=== PATIENT | male | born 1960 | race Caucasian/White ===

== ENCOUNTER 2017-05-17 02:55 | Inpatient (IN) | payer BC ==
[~2017-05-17] VITALS: Ht 180.3 cm; Wt 84.5 kg
--- NOTE | 2017-05-17 05:50 | ED NURSING NOTES ---
Clinical Report - Nurses [facility] [address] [place] [address] 05/17/2017 2:55 Patient: CYN PARSONS TRIAGE Triage time 02:59. Acuity: LEVEL 3. Chief Complaint: CHEST PAIN and SHORTNESS OF BREATH (right chest pain under arm pit and right nipple). --03:04 Kamilla Borden R.N. 02:59 05/17/17. BP: 153/89 taken on the left arm, while lying. HR: 82 (regular and normal rate). RR: 18 (regular and unlabored). O2 saturation: 97% on room air. Temp: 98 F. Pain level now: 06/18. --03:04 Kamilla Borden R.N. Weight: 90.7 kg stated. Height/Length: 71 inches Per Patient. BMI: 27.9. --03:00 Kamilla Borden R.N. Medications None. --03:02 Kamilla Borden R.N. Allergies Neosporin. --03:02 Kamilla Borden R.N. Shellfish-derived Products. Definite Severe(vomiting) --04:24 Kamilla Borden R.N. History Arrived by private vehicle. Historian: patient. Accompanied by family. Primary physician (none). Onset. (since Thursday). ( pt c/o pain to right chest under right nipple and right arm pit worse with breathing and coughing). ( swelling to right leg x 6 months). PAST MEDICAL HX: Immunizations: up-to-date. SOCIAL HX: Heavy tobacco smoker (cigarette)- 1 pack per day. Occasional alcohol use; consumes beer occasionally. No drug use. No infectious disease exposure. ABUSE ASSESSMENT: No report of abuse. SELF HARM ASSESSMENT: A self harm assessment was performed. The patient answered "no" to the question "Have you recently felt down, depressed, or hopeless?", "Have you noticed less interest or pleasure in doing things?", "Do you have thoughts of harming or killing yourself?", "Are you here because you tried to hurt yourself?", "Have you ever tried to hurt yourself before today?", "Have you recently had thoughts about harming or killing others?" and "Do you have any dangerous items in your possession?". FALL RISK ASSESSMENT: Fall risk assessment completed. No fall risk identified. NUTRITIONAL RISK ASSESSMENT: The nutritional risk assessment revealed no deficiencies. FUNCTIONAL ASSESSMENT: Functional assessment: no impairments noted. LEARNING NEEDS ASSESSMENT: The learning needs assessment revealed no barriers. SKIN INTEGRITY ASSESSMENT: Skin integrity risk assessment completed. No skin integrity risk identified. --03:04 Kamilla Borden R.N. PROBLEMS: Cellulitis. --03:04 Kamilla Borden R.N. ADDITIONAL SURGERIES: no known surgeries. Interventions ID band on patient. To treatment room. --03:04 Kamilla Borden R.N. PHYSICAL ASSESSMENT Ambulatory to room. GENERAL / NEURO / PSYCH: Alert. Oriented X 4. Appears in pain. HEENT: Mucous membranes are pink. RESPIRATORY: Respirations not labored. Expiratory wheezes in the right mid-lung anteriorly and posteriorly. CVS: Cardiac rhythm: normal sinus rhythm; (82). Heart sounds within normal limits. Pulses within normal limits. Capillary refill less than 2 seconds. GI / : Abdomen soft and nontender. EXTREMITIES: Edema of the right lower extremity involving the foot and ankle. SKIN: Skin is warm and dry. Normal skin turgor. Skin is non-tender. --03:06 Kamilla Borden R.N. NURSING PROGRESS NOTES Patient gowned. Call light placed in reach. Side rails up x 1. Patient ready for evaluation- chart flagged. --03:06 Kamilla Borden R.N. EKG time: (0302 AM). EKG was ordered, performed by a tech and shown to the ED physician. --03:09 Cami Lagos 03:10 05/17/2017 Site #1 started via IV in the right antecubital space with an 18g angiocath, with aseptic technique and good blood return; one attempt. Blood drawn: rainbow set. Labeled in the presence of the patient and sent to the lab. Saline lock flushed with 10 mL saline. --03:17 Kamilla Borden R.N. 04:31 05/17/2017 Benadryl (DiphenhydrAMINE HCl) IVP 25 mg given over 2 minute(s) via site #1. Allergies verified, confirmed 5 rights and sedative warning given to the patient. IV patency established. IV site checked: no pain, redness, or swelling. IV flushed thoroughly pre- and post-medication administration. IVP given by RN. --04:39 Kamilla Borden R.N. 04:33 05/17/2017 Zofran (Ondansetron HCl) IVP 4 mg given over 2 minute(s) via site #1. Allergies verified and confirmed 5 rights. IV patency established. IV site checked: no pain, redness, or swelling. IV flushed thoroughly pre- and post-medication administration. IVP given by RN. --04:39 Kamilla Borden R.N. 04:34 05/17/2017 Morphine IVP 4 mg given over 2 minute(s) via site #1. Allergies verified, confirmed 5 rights and sedative warning given to the patient. IV patency established. IV site checked: no pain, redness, or swelling. IV flushed thoroughly pre- and post-medication administration. IVP given by RN. --04:38 Kamilla Borden R.N. Patient transported to [place] by stretcher with tech. (04:39). --04:39 Kamilla Borden R.N. Two patient identifiers checked. Call light placed in reach. Side rails up x 2. Bed placed in lowest position. Brakes of bed on. --04:44 Kamilla Borden R.N. 04:11 05/17/17. BP: 140/83. HR: 86 (regular and normal rate). RR: 18 (regular and unlabored). O2 saturation: 94% on room air. Temp: deferred. Pain level now: 04/18. --04:44 Kamilla Borden R.N. Patient returned from [place] by stretcher with tech. (04:52). --04:52 Kamilla Borden R.N. 05:50 05/17/2017 Lovenox (Enoxaparin Sodium) Subcutaneous 90 mg given. Given in the right abdomen. Allergies verified and confirmed 5 rights. --05:50 Kamilla Borden R.N. 05:50 05/17/2017 IV Saline Lock Drip IV Continued: upon admission at the rate of 0 mL/hr. 0 mL remaining. IV patency established. IV site checked: no pain, redness, or swelling. IV flushed thoroughly. --05:50 Kamilla Borden R.N. 05:51 05/17/2017 Site #[address] upon admission; patent, no pain and no signs of infection or infiltration. Good blood return present. Flushed with 10 mL saline; flushes easily. --05:51 Kamilla Borden R.N. DISPOSITION / DISCHARGE Departure time: 05:54. Transported via stretcher by [employer] with IV. Report was given to a nurse via a phone call. Report included patient's care, treatment, medications, reviewed medication reconcilliation, and condition (including any recent changes or anticipated changes). All questions were answered. Report was acknowledged and care was transferred. ([id number] Nasreen MAO). --05:55 Kamilla Borden R.N. 05:53 05/17/17. BP: 137/84 taken on the left arm, while lying. HR: 80 (regular and normal rate). RR: 18 (regular and unlabored). O2 saturation: 95% on room air. Temp: deferred. Pain level now: 0/10. --05:55 Kamilla Borden R.N. Locked/Released at 05/17/2017 5:55 by Kamilla Borden R.N.
--- NOTE | 2017-05-17 05:50 | ED ORDER SUMMARY ---
..... Patient: CYN PARSONS OrderSheet [facility] VisitID: [id number] [place] [address] 56y, M Registration Date/Time: 05/17/2017 ORDER SHEET Weight: 90.7 kg (stated) Allergies: Neosporin, Shellfish-derived Products GENERAL ORDERS: Chest 2V Urgent (03:18 05/17/2017 Kait Bateman) (Ack 3:31 Zack ER Cone Worker) (4:27 CBradburn R.N.) Preventive Maintenance Engineer (Continuous) (03:19 05/17/2017 Kait Bateman) (3:20 Carson R.N.) CBC w Diff Urgent (03:05/17/2017 Kait Bateman) (3:20 Carson R.N.) CMP Urgent (03:19 05/17/2017 Kait Bateman) (3:20 Carson R.N.) Troponin-I Urgent (03:19 05/17/2017 Kait Bateman) (3:20 Carson R.N.) D-Dimer Urgent (03:19 05/17/2017 Kait Bateman) (3:20 Carson R.N.) Pulse oximeter (03:05/17/2017 Kiat Bateman) (3:20 GINGERradrobin R.N.) EKG - ER Stat (03:19 05/17/2017 Kait Bateman) (3:20 Carson R.N.) CTA Thorax w Cont (No) (N/A) Urgent (04:00 05/17/2017 Kait Bateman) (Ack 4:05 Zack ER Cone Worker) (4:39 Carson R.N.) MEDICATION ORDERS: Lovenox Subcut 1 mg/kg (HIGH ALERT MEDICATION, NOW) (05:24 05/17/2017 Kait Bateman) (Ack 5:28 CBradrobin R.N.) (5:50 Carson R.N.) IV FLUIDS: IV Saline Lock (03:19 05/17/2017 Kait Bateman) (3:20 Carson R.N.) Morphine IV 4 mg (HIGH ALERT MEDICATION, NOW) (04:17 05/17/2017 Kait Bateman) (Ack 4:29 CBradburn R.N.) (4:38 CBradburn R.N.) Benadryl IV 25 mg (NOW) (04:28 05/17/2017 Kait Bateman) (Ack 4:29 CBradburn R.N.) (4:39 CBradburn R.N.) Zofran IV 4 mg (NOW) (04:28 05/17/2017 Kait Bateman) (Ack 4:29 CBradburn R.N.) (4:39 CBradburn R.N.) ORDER SHEET NOTES: [Electronically signed by Kamilla Borden R.N. (05:55 05/17/2017)] [Electronically signed by Nav Shelley Dr. (06:38 05/19/2017)] [Electronically locked/signed by Kamilla Borden R.N. (05:55 05/17/2017)]
--- NOTE | 2017-05-17 05:50 | ED NURSING NOTES ---
Clinical Report - Nurses [facility] [address] [place] [address] 05/17/2017 2:55 Patient: CYN PARSONS TRIAGE Triage time 02:59. Acuity: LEVEL 3. Chief Complaint: CHEST PAIN and SHORTNESS OF BREATH (right chest pain under arm pit and right nipple). --03:04 Kamilla Borden R.N. 02:59 05/17/17. BP: 153/89 taken on the left arm, while lying. HR: 82 (regular and normal rate). RR: 18 (regular and unlabored). O2 saturation: 97% on room air. Temp: 98 F. Pain level now: 06/18. --03:04 Kamilla Borden R.N. Weight: 90.7 kg stated. Height/Length: 71 inches Per Patient. BMI: 27.9. --03:00 Kamilla Borden R.N. Medications None. --03:02 Kamilla Borden R.N. Allergies Neosporin. --03:02 Kamilla Borden R.N. Shellfish-derived Products. Definite Severe(vomiting) --04:24 Kamilla Borden R.N. History Arrived by private vehicle. Historian: patient. Accompanied by family. Primary physician (none). Onset. (since Thursday). ( pt c/o pain to right chest under right nipple and right arm pit worse with breathing and coughing). ( swelling to right leg x 6 months). PAST MEDICAL HX: Immunizations: up-to-date. SOCIAL HX: Heavy tobacco smoker (cigarette)- 1 pack per day. Occasional alcohol use; consumes beer occasionally. No drug use. No infectious disease exposure. ABUSE ASSESSMENT: No report of abuse. SELF HARM ASSESSMENT: A self harm assessment was performed. The patient answered "no" to the question "Have you recently felt down, depressed, or hopeless?", "Have you noticed less interest or pleasure in doing things?", "Do you have thoughts of harming or killing yourself?", "Are you here because you tried to hurt yourself?", "Have you ever tried to hurt yourself before today?", "Have you recently had thoughts about harming or killing others?" and "Do you have any dangerous items in your possession?". FALL RISK ASSESSMENT: Fall risk assessment completed. No fall risk identified. NUTRITIONAL RISK ASSESSMENT: The nutritional risk assessment revealed no deficiencies. FUNCTIONAL ASSESSMENT: Functional assessment: no impairments noted. LEARNING NEEDS ASSESSMENT: The learning needs assessment revealed no barriers. SKIN INTEGRITY ASSESSMENT: Skin integrity risk assessment completed. No skin integrity risk identified. --03:04 Kamilla Borden R.N. PROBLEMS: Cellulitis. --03:04 Kamilla Borden R.N. ADDITIONAL SURGERIES: no known surgeries. Interventions ID band on patient. To treatment room. --03:04 Kamilla Borden R.N. PHYSICAL ASSESSMENT Ambulatory to room. GENERAL / NEURO / PSYCH: Alert. Oriented X 4. Appears in pain. HEENT: Mucous membranes are pink. RESPIRATORY: Respirations not labored. Expiratory wheezes in the right mid-lung anteriorly and posteriorly. CVS: Cardiac rhythm: normal sinus rhythm; (82). Heart sounds within normal limits. Pulses within normal limits. Capillary refill less than 2 seconds. GI / : Abdomen soft and nontender. EXTREMITIES: Edema of the right lower extremity involving the foot and ankle. SKIN: Skin is warm and dry. Normal skin turgor. Skin is non-tender. --03:06 Kamilla Borden R.N. NURSING PROGRESS NOTES Patient gowned. Call light placed in reach. Side rails up x 1. Patient ready for evaluation- chart flagged. --03:06 Kamilla Borden R.N. EKG time: (0302 AM). EKG was ordered, performed by a tech and shown to the ED physician. --03:09 Cami Lagos 03:10 05/17/2017 Site #1 started via IV in the right antecubital space with an 18g angiocath, with aseptic technique and good blood return; one attempt. Blood drawn: rainbow set. Labeled in the presence of the patient and sent to the lab. Saline lock flushed with 10 mL saline. --03:17 Kamilla Borden R.N. 04:31 05/17/2017 Benadryl (DiphenhydrAMINE HCl) IVP 25 mg given over 2 minute(s) via site #1. Allergies verified, confirmed 5 rights and sedative warning given to the patient. IV patency established. IV site checked: no pain, redness, or swelling. IV flushed thoroughly pre- and post-medication administration. IVP given by RN. --04:39 Kamilla Borden R.N. 04:33 05/17/2017 Zofran (Ondansetron HCl) IVP 4 mg given over 2 minute(s) via site #1. Allergies verified and confirmed 5 rights. IV patency established. IV site checked: no pain, redness, or swelling. IV flushed thoroughly pre- and post-medication administration. IVP given by RN. --04:39 Kamilla Borden R.N. 04:34 05/17/2017 Morphine IVP 4 mg given over 2 minute(s) via site #1. Allergies verified, confirmed 5 rights and sedative warning given to the patient. IV patency established. IV site checked: no pain, redness, or swelling. IV flushed thoroughly pre- and post-medication administration. IVP given by RN. --04:38 Kamilla Borden R.N. Patient transported to [place] by stretcher with tech. (04:39). --04:39 Kamilla Borden R.N. Two patient identifiers checked. Call light placed in reach. Side rails up x 2. Bed placed in lowest position. Brakes of bed on. --04:44 Kamilla Borden R.N. 04:11 05/17/17. BP: 140/83. HR: 86 (regular and normal rate). RR: 18 (regular and unlabored). O2 saturation: 94% on room air. Temp: deferred. Pain level now: 04/18. --04:44 Kamilla Borden R.N. Patient returned from [place] by stretcher with tech. (04:52). --04:52 Kamilla Borden R.N. 05:50 05/17/2017 Lovenox (Enoxaparin Sodium) Subcutaneous 90 mg given. Given in the right abdomen. Allergies verified and confirmed 5 rights. --05:50 Kamilla Borden R.N. 05:50 05/17/2017 IV Saline Lock Drip IV Continued: upon admission at the rate of 0 mL/hr. 0 mL remaining. IV patency established. IV site checked: no pain, redness, or swelling. IV flushed thoroughly. --05:50 Kamilla Borden R.N. 05:51 05/17/2017 Site #[address] upon admission; patent, no pain and no signs of infection or infiltration. Good blood return present. Flushed with 10 mL saline; flushes easily. --05:51 Kamilla Borden R.N. DISPOSITION / DISCHARGE Departure time: 05:54. Transported via stretcher by [employer] with IV. Report was given to a nurse via a phone call. Report included patient's care, treatment, medications, reviewed medication reconcilliation, and condition (including any recent changes or anticipated changes). All questions were answered. Report was acknowledged and care was transferred. (0538 Nasreen MAO). --05:55 Kamilla Borden R.N. 05:53 05/17/17. BP: 137/84 taken on the left arm, while lying. HR: 80 (regular and normal rate). RR: 18 (regular and unlabored). O2 saturation: 95% on room air. Temp: deferred. Pain level now: 0/10. --05:55 Kamilla Borden R.N. Locked/Released at 05/17/2017 5:55 by Kamilla Borden R.N.
--- NOTE | 2017-05-17 05:50 | ED ORDER SUMMARY ---
..... Patient: CYN PARSONS OrderSheet [facility] VisitID: [id number] [place] [address] 56y, M Registration Date/Time: 05/17/2017 ORDER SHEET Weight: 90.7 kg (stated) Allergies: Neosporin, Shellfish-derived Products GENERAL ORDERS: Chest 2V Urgent (03:18 05/17/2017 Kait Bateman) (Ack 3:31 Zack ER Supervisor Printing Shop) (4:27 CBradburn R.N.) Car Hop (Continuous) (03:19 05/17/2017 Kait Bateman) (3:20 Carson R.N.) CBC w Diff Urgent (03:05/17/2017 Kait Bateman) (3:20 Carson R.N.) CMP Urgent (03:19 05/17/2017 Kait Bateman) (3:20 Carson R.N.) Troponin-I Urgent (03:19 05/17/2017 Kait Bateman) (3:20 Carson R.N.) D-Dimer Urgent (03:19 05/17/2017 Kait Bateman) (3:20 Carson R.N.) Pulse oximeter (03:05/17/2017 Kait Bateman) (3:20 GINGERradrobin R.N.) EKG - ER Stat (03:19 05/17/2017 Kait Bateman) (3:20 Carson R.N.) CTA Thorax w Cont (No) (N/A) Urgent (04:00 05/17/2017 Kait Bateman) (Ack 4:05 Zack ER Supervisor Printing Shop) (4:39 Carson R.N.) MEDICATION ORDERS: Lovenox Subcut 1 mg/kg (HIGH ALERT MEDICATION, NOW) (05:24 05/17/2017 Kait Bateman) (Ack 5:28 CBradrobin R.N.) (5:50 Carson R.N.) IV FLUIDS: IV Saline Lock (03:19 05/17/2017 Kait Bateman) (3:20 Carson R.N.) Morphine IV 4 mg (HIGH ALERT MEDICATION, NOW) (04:17 05/17/2017 Kait Bateman) (Ack 4:29 CBradburn R.N.) (4:38 CBradburn R.N.) Benadryl IV 25 mg (NOW) (04:28 05/17/2017 Kait Bateman) (Ack 4:29 CBradburn R.N.) (4:39 CBradburn R.N.) Zofran IV 4 mg (NOW) (04:28 05/17/2017 Kait Bateman) (Ack 4:29 CBradburn R.N.) (4:39 CBradburn R.N.) ORDER SHEET NOTES: [Electronically signed by Kamilla Borden R.N. (05:55 05/17/2017)] [Electronically signed by Nav Shelley Dr. (06:38 05/19/2017)] [Electronically locked/signed by Kamilla Borden R.N. (05:55 05/17/2017)]
--- NOTE | 2017-05-17 05:50 | ED CLINICAL REPORT ---
Clinical Report - Physicians/Mid Levels [facility] [address] [place] [address] 05/17/2017 2:55 Patient: CYN PARSONS Time Seen: 0309; initial patient contact. Arrived- By private vehicle. Historian- patient. HISTORY OF PRESENT ILLNESS Chief Complaint: CHEST PAIN. At its maximum, severity described as moderate. When seen in the E.D., severity described as moderate. Modifying factors- worsened by deep breaths. Relieved by rest. This started past 2 days and is still present. It was abrupt in onset and has been constant but is not gone now. Onset during driving home from work. It is described as sharp and well localized and it is described as located in the right chest area. No radiation. No nausea, vomiting or diaphoresis. (smoker. recent treatment for "skin infection" of the lower leg.). He has had difficulty breathing. No additional chest pain. Similar symptoms previously: None. Recent medical care: Not recently seen/assessed. REVIEW OF SYSTEMS No fever. All systems otherwise negative, except as recorded above. PAST HISTORY See nurses notes. Denies the following risk factors for DVT/PE - history of DVT and pulmonary embolism, recent surgery, recent MN and congestive heart failure. Denies the following risk factors for DVT/PE - cancer, clotting disorder, estrogens, obesity and immobility. Denies the following risk factors for DVT/PE - advanced in age and vena cava filter. SOCIAL HISTORY Smoker- current status unknown. No alcohol use or drug use. No recent travel. Is a local resident. FAMILY HISTORY Factor V Leiden in multiple family members. ADDITIONAL NOTES The nursing notes have been reviewed. PHYSICAL EXAM Vital Signs: 05/17/2017 02:59 BP: 153/89. HR: 82. RR: 18. O2 saturation: 97%. Temp: 98 F. Pain level now: 8/10. Oxygen saturation normal. Appearance: Alert. Oriented X3. No acute distress. Eyes: Pupils equal, round and reactive to light. Eyes normal inspection. ENT: Ears normal. Nose normal. Pharynx normal. Neck: Normal inspection. Neck supple. CVS: Normal heart rate and rhythm. Heart sounds normal. Pulses normal. Respiratory: No respiratory distress. Breath sounds normal. Chest nontender. No rales, rhonchi or wheezes. Abdomen: Soft and nontender. Bowel sounds normal. Skin: Skin warm and dry. Normal skin color. No rash. Normal skin turgor. Extremities: Extremities exhibit normal ROM. No lower extremity edema. Neuro: Oriented X 3. No motor deficit. No sensory deficit. LABS, X-RAYS, AND EKG EKG: No acute ischemia. Normal sinus rhythm. Rate: 80. Normal P waves. Normal HERMILA. Normal QRS complex. Normal axis. Normal ST and T waves, QT and QTc. The study has been interpreted contemporaneously. The study has been independently viewed by me. The EKG appears to be a good tracing. Chest X-ray: Infiltrate in the right upper lobe. Pleural effusion present. Chest CT: Pulmonary embolism involving the right pulmonary artery. (CTA). The study was independently viewed by me and interpreted by the radiologist. The study was discussed with the radiologist (via phone and fax). Laboratory Tests: CBC w Diff: (CHOCO: 05/17/2017 03:10) ( MsgRcvd 05/17/2017 03:25) Final results Test Result Flag Units (Reference) WHITE BLOOD COUNT 9.9 K/uL (4.5-11.5) RED BLOOD COUNT 4.60 M/uL (4.50-5.90) HEMOGLOBIN 14.2 gm/dL (13.5-17.5) HEMATOCRIT 41.9 % (41.0-53.0) MEAN CELL VOLUME 91 fL (80-100) MEAN CORPUSCULAR HGB 31 pg (26-34) MEAN CORPUSCULAR HGB CONC 34 g/dL (31-37) RED CELL DISTRIBUTION WIDTH 13.2 % (11.6-14.8) PLATELET COUNT 260 K/uL (150-400) NEUTROPHIL % 76.6 H % (50-75) LYMPH % 13.5 L % (25-40) MONO % 4.5 % (3-14) EOSINOPHIL % 5.2 H % (0-4) BASOPHIL % 0.2 % (0-2) [id number]: (CHOCO: 05/17/2017 03:10) ( MsgRcvd 05/17/2017 03:30) Final results Test Result Flag Units (Reference) D-DIMER QUANTITATIVE 1.48 H ug/mLFEU (0.27-0.52) The primary value of this quantitative assay relates toits negative predictive value (i.e. exclusion) of pulmonaryembolism/deep vein thrombosis/DIC.Elevated levels of d-dimer may also occur with:, age, cancer, inflammation, liver disease,post-op, infection, hematoma, coronary disease, peripheralarteriopathy, bleeding disorders and thrombolytic treatment.Results should be correlated with other clinical andradiological data.Testing Methodology: Latex Immunoassay CMP: (CHOCO: 05/17/2017 03:10) ( MsgRcvd 05/17/2017 03:38) Final results Test Result Flag Units (Reference) GLUCOSE 135 H mg/dL (70-110) BUN 15 mg/dL (7-18) CREATININE 0.7 mg/dL (0.6-1.3) Estimated GFR >60 mL/min Estimated GFR- >60 mL/min Note: Persistent reduction over 3 months in eGFR<60 mL/min/1.73 m2 defines CKD. Patients with eGFR values>=60 mL/min/1.73 m2 may also have CKD if evidence ofpersistent proteinuria. Additional information may be foundat www.[email or web address].org. SODIUM 140 mmol/L (136-145) POTASSIUM 3.9 mmol/L (3.5-5.1) CHLORIDE 105 mmol/L (98-107) CARBON DIOXIDE 23 mmol/L (21-32) CALCIUM 8.2 L mg/dL (8.5-10.1) TOTAL PROTEIN 6.6 g/dL (6.4-8.2) ALBUMIN 3.1 L g/dL (3.3-5.0) BILIRUBIN, TOTAL 0.3 mg/dL (0.0-1.0) ALKALINE PHOSPHATASE 94 U/L (46-116) AST (SGOT) 16 U/L (15-37) ALT (SGPT) 28 U/L (12-78) TROPONIN I <0.05 ng/mL (0.00-1.5) TROPONIN REFERENCE RANGE:<0.1 NEGATIVE0.1-1.5 INDETERMINANT>1.5 POSITIVE . Pulse Oximetry: 05/17/2017 05:53 O2 saturation: 95%. Interpretation: normal. PROGRESS AND PROCEDURES Course of Care: the patient is a 56-year-old male presenting for evaluation of chest pain or shortness of breath. Patient appears to have pleuritic chest pain on examination. At this time differential diagnosis includes pulmonary embolism, pleurisy, pneumonia, or acute myocardial infarction. Obese and somewhat unusual given the patient's history for acute myocardial infarction however patient does have chest pain Patient will be evaluated with a d-dimer as well as troponin. Patient is agreeable to the treatment and plan. CT scan ordered because of patient's elevation in d-dimer. Patient is agreeable to this evaluation. Rest of the patient's workup is otherwise unremarkable except for chest x-ray which showsright upper lobe consolidation. The patient's CT scan was significant for pulmonary embolism. Because of the patient'sworkup here in the emergency department, feel the patient should be admitted to the hospital. I discussion with the patient in regards to anticoagulation therapy and its risks and benefits. Patient is agreeable to be started on blood thinners. Had discussion with the patient in regards to his diagnosis and plan of care. All questions have been answered. The patient expressed understanding of these instructions and was agreeable to them. Lovenox has been ordered. Case was discussed with the hospitalist. No further recommendations made. Appreciate hospitalist help with patient's care. Critical care performed (40 minutes). Time is exclusive of separately billable procedures. Time includes: direct patient care, patient reassessment, coordination of patient care, interpretation of data (laboratory data, pulse oximetry and chest xrays), review of patient's medical records, medical consultation and documentation of patient care. Disposition: Observation in Acute Care. (Electronically signed by Nav Shelley Dr. 05/19/2017 6:38)
[2017-05-17 06:19] VITALS: BP 137/93
--- NOTE | 2017-05-17 06:26 | DIAGNOSTIC IMAGING REPORT ---
PROCEDURE: XR CHEST 2 VIEW INDICATION: Chest pain. TECHNIQUE: PA and lateral views. COMPARISON: None. FINDINGS: There is mild to moderate pleural-based parenchymal changes in the right lateral midlung. There are mild atelectatic changes at the right lung base with minimal effusion. Left lung is clear. Heart and mediastinum are normal. Thorax is normal. IMPRESSION: 1. Mild to moderate parenchymal changes in the right lateral midlung with small right pleural effusion. Findings are compatible with an inflammatory process (ischemia, infection).
--- NOTE | 2017-05-17 07:01 | DIAGNOSTIC IMAGING REPORT ---
PROCEDURE: CTA THORAX WITH CONTRAST INDICATION: CHEST PAIN TECHNIQUE: 95 ml of Isovue 370 was injected intravenously and axial images were obtained of the entire thorax with 3D sagittal and coronal MIP reconstructions. Preliminary report provided by Carmen Roman MD ([facility]). COMPARISON: Compared to chest x-ray earlier today (05/17/2017). FINDINGS: There are acute emboli in the anterior and posterior segments of the right upper lobe, with smaller emboli in the right middle lobe. The rest of the pulmonary vessels are normal. These findings are associated with moderate pleural based right mid consolidation, with small right pleural effusion. In addition, there is a bronchial thickening, with mucus plugging and moderate atelectasis at the right lung base. There is bronchial wall thickening with mucous plugging at the left lung base, and mild atelectatic changes. Left lung is otherwise normal. There is mild mediastinal pretracheal and right hilar adenopathy. Heart is of normal size. There are mild degenerative changes of the thoracic spine. IMPRESSION: 1. There are acute right upper lobe and middle lobe pulmonary emboli with pulmonary infarct in the right lateral midlung. 2. Associated small right pleural effusion. 3. Moderate bibasilar bronchial wall thickening with mucus plugs, and moderate atelectatic changes at the lung bases (right greater than left). Consider underlying pneumonia. 4. Mild mediastinal adenopathy (most likely reactive adenopathy). 5. Preliminary report provided to Dr. Nav Shelley (Dr. Roman). 6. Findings were discussed with Dr. Shelley and called to Dr. Lerma. All CT scans at this facility use dose modulation, iterative reconstruction, and/or weight-based dosing when appropriate to reduce radiation dose to as low as reasonably achievable.
[2017-05-17 10:33] VITALS: BP 121/84
--- NOTE | 2017-05-17 10:54 | History & Physical Report ---
History Chief Complaint Chest pain History of Present Illness 56 year old whit male developped chest pain since last Thursday, sharp worsen by inspiration associated with dyspnea, no radiation in right upper chest. No cough , hemoptisis, no palpitations. Pain persist so patient came to ER and CTA showed he has PE, has family history of Factor 5 defeciency and PE Patient History 1. GERD (gastroesophageal reflux disease) 2. Fahad nodes (DJD hand) Social History , has 2 kids, lives with his , Smokin.5 ppd for 37 years, ETOH: soscial drinker, [place] drugs: none Family History Relation not specified for: FH: factor V Leiden mutation Hypertension Medications and Allergies Medications Home medications: None Current Medications Sig/Terell Start time Last Medication Dose Route Stop Time Status Admin Rivaroxaban 15 MG BIDWC 05/17 1100 AC PO Enoxaparin Sodium 80 MG BID 05/17 0900 AC 05/17 SC 0834 Famotidine/Sodium 50 ML Q12HR 05/17 900 AC 05/17 Chloride IV 0834 Nicotine 21 MG DAILY 05/17 09 AC 05/17 TOP 0834 Albuterol/Ipratropium 3 ML RTQ6H 05/17 0800 AC 05/17 IN 0759 Hydromorphone HCl 1 MG Q1H PRN 05/17 0730 AC 05/17 IV 0852 Ondansetron HCl 4 MG Q6H PRN 05/17 0730 AC IV Allergies Coded Allergies: Bacitracin (From NEOSPORIN) (Severe, 05/17/17) Neomycin (From NEOSPORIN) (Severe, BLISTERS 05/17/17) Polymyxin B (From NEOSPORIN) (Severe, 05/17/17) Shellfish Allergy (Severe, 05/17/17) Reconcile Medications No Known Home Medications Review of Systems Other pain in his hands, all other systems negative Physical Exam General Appearance Alert, Oriented X3, No acute distress HEENT Normal exam Lungs Clear to auscultation Neck Supple, No JVD, No masses, 2+ carotid pulse wo bruit Cardiovascular Regular rate and rhythm, Normal S1 and S2, No murmurs, gallops, rubs Abdomen Normal bowel sounds, Soft, No tenderness Extremities No cyanosis, No edema, Normal pulses, No tenderness Skin No Rashes, No Significant Lesions Neurological Normal speech, Normal tone, Reflexes 2+ and equal, Cranial nerves intact, Strength 5/5 x4 ext's Psych/Mental Status Mental status normal, Mood normal LAB Results Laboratory Tests 05/17 0310 Chemistry Plasma Sodium (136 - 145 mmol/L) 140 Plasma Potassium (3.5 - 5.1 mmol/L) 3.9 Plasma Chloride (98 - 107 mmol/L) 105 CO2 (Enzymatic) (21 - 32 mmol/L) 23 BUN (7 - 18 mg/dL) 15 Creatinine (0.6 - 1.3 mg/dL) 0.7 Est GFR ( Amer) (mL/min) >60 Est GFR (Non-Af Amer) (mL/min) >60 Glucose (70 - 110 mg/dL) 135 Plasma Calcium (8.5 - 10.1 mg/dL) 8.2 Total Bilirubin (0.0 - 1.0 mg/dL) 0.3 AST (15 - 37 U/L) 16 ALT (12 - 78 U/L) 28 Alkaline Phosphatase (46 - 116 U/L) 94 Troponin (0.00 - 1.5 ng/mL) <0.05 Total Protein (6.4 - 8.2 g/dL) 6.6 Albumin (3.3 - 5.0 g/dL) 3.1 Coagulation D-Dimer, Quantitative (0.27 - 0.52 ug/mLFEU) 1.48 Hematology WBC (4.5 - 11.5 K/uL) 9.9 RBC (4.50 - 5.90 M/uL) 4.60 Hgb (13.5 - 17.5 gm/dL) 14.2 Hct (41.0 - 53.0 %) 41.9 MCV (80 - 100 fL) 91 MCH (26 - 34 pg) 31 RDW (11.6 - 14.8 %) 13.2 Neut % (Auto) (50 - 75 %) 76.6 Lymph % (Auto) (25 - 40 %) 13.5 [place] % (Auto) (3 - 14 %) 4.5 Eos % (Auto) (0 - 4 %) 5.2 Baso % (Auto) (0 - 2 %) 0.2 Plt Count, EDTA (150 - 400 K/uL) 260 PUBS MCHC (31 - 37 g/dL) 34 Assessment and Plan Problem List 1. Pulmonary embolism Plan continue Lovenox, will start Xeralto 15mg bid since insurance covering, plan to discharge home in AM 2. GERD (gastroesophageal reflux disease) Plan stable on Fomatidine 3. Fahad nodes (DJD hand) Plan tyl for pain controll 4. Nicotine dependence
[2017-05-17 14:35] VITALS: BP 121/85
[2017-05-17 18:20] VITALS: BP 143/94
[2017-05-17 19:13] VITALS: BP 137/86
[2017-05-17 23:38] VITALS: BP 153/99
[2017-05-18 03:30] VITALS: BP 136/87
[2017-05-18 06:42] VITALS: BP 148/99; BP 150/97
[2017-05-18] MEDS ORDERED: XARELTO10 MG PO (09:13)
[2017-05-18] MEDS ORDERED: COMBIVENT RESPIMAT IN (09:13)
--- NOTE | 2017-05-18 13:08 | Discharge Summary ---
Discharge Summary Report Admit Date 05/17/17 Discharge Date 05/18/17 Admission Diagnosis 1- PE 2- GERD 3- DJD of hands 4- Nicotin dependency Discharge Diagnosis 1- PE 2- GERD 3- DJD of hands 4- Nicotin dependency Brief History 56 year old whit male developped chest pain since last Thursday, sharp worsen by inspiration associated with dyspnea, no radiation in right upper chest. No cough , hemoptisis, no palpitations. Pain persist so patient came to ER and CTA showed he has PE, has family history of Factor 5 defeciency and PE Hospital Course The patient was started on Lovenox but stopped later on when we found the his insurance will cover Xeralto. He was put on Xeralto 15mg bid. His pain in righ chest improved. Mild dyspnea, but was able to ambulate fine. No nausea or vomiting, no fever or chills. General Appearance Alert, Oriented X3, No acute distress Lungs Clear to auscultation Cardiovascular Normal S1, Normal S2, No murmurs Abdomen Normal bowel sounds, Soft, No tenderness Skin No Rashes, No Significant Lesions Psych/Mental Status Mental status NL, Mood NL Lab/Imaging Laboratory Tests 05/18 0505 Chemistry Plasma Sodium (136 - 145 mmol/L) 141 Plasma Potassium (3.5 - 5.1 mmol/L) 4.5 Plasma Chloride (98 - 107 mmol/L) 105 CO2 (Enzymatic) (21 - 32 mmol/L) 24 BUN (7 - 18 mg/dL) 11 Creatinine (0.6 - 1.3 mg/dL) 0.6 Est GFR ( Amer) (mL/min) >60 Est GFR (Non-Af Amer) (mL/min) >60 Glucose (70 - 110 mg/dL) 105 Plasma Calcium (8.5 - 10.1 mg/dL) 8.6 Coagulation INR (0.8 - 1.2) 0.9 Hematology WBC (4.5 - 11.5 K/uL) 8.4 RBC (4.50 - 5.90 M/uL) 4.68 Hgb (13.5 - 17.5 gm/dL) 14.2 Hct (41.0 - 53.0 %) 43.3 MCV (80 - 100 fL) 93 MCH (26 - 34 pg) 30 RDW (11.6 - 14.8 %) 12.9 Neut % (Auto) (50 - 75 %) 70.6 Lymph % (Auto) (25 - 40 %) 17.9 [place] % (Auto) (3 - 14 %) 5.5 Eos % (Auto) (0 - 4 %) 5.5 Baso % (Auto) (0 - 2 %) 0.5 Plt Count, EDTA (150 - 400 K/uL) 209 PUBS MCHC (31 - 37 g/dL) 33 Discharge Instructions/Meds Told patient to take Xeralto 15mg bid for 3 weeks, script written. I told him that he needs to switch to Xeralto 20mg daily by his PCP after 3 weeks. Follow up with his PCP in one week.
--- NOTE | 2017-05-19 06:38 | ED MAR SUMMARY ---
..... Medication Administration Record [facility] [address] [place] [address] Patient: CYN PARSONS Visit ID: [id number] 56y, M Weight: 90.7 kg Height/Length: 71 in BMI: 27.9 ALLERGIES: Neosporin, Shellfish-derived Products Given 04:31 05/17/2017 Kamilla Borden R.N. Medication Administered: BENADRYL [IVP] (DIPHENHYDRAMINE HCL), Dose: 25 mg IVP over 2 minute(s), Site: #1 right AC. Medication Ordered: Benadryl IV 25 mg (NOW). Given 04:33 05/17/2017 Kamilla Borden R.N. Medication Administered: ZOFRAN [IVP] (ONDANSETRON HCL), Dose: 4 mg IVP over 2 minute(s), Site: #1 right AC. Medication Ordered: Zofran IV 4 mg (NOW). Given 04:34 05/17/2017 Kamilla Borden R.N. Medication Administered: MORPHINE [IVP], Dose: 4 mg IVP over 2 minute(s), Site: #1 right AC. Medication Ordered: Morphine IV 4 mg (HIGH ALERT MEDICATION, NOW). Given 05:50 05/17/2017 Kamilla Borden R.N. Medication Administered: LOVENOX [SUBCUTANEOUS] (ENOXAPARIN SODIUM), Dose: 90 mg Subcutaneous. Medication Ordered: Lovenox Subcut 1 mg/kg (HIGH ALERT MEDICATION, NOW).
--- NOTE | 2017-05-19 06:38 | ED MED RECONCILIATION SUMMARY ---
Patient: CYN PARSONS Medication Reconciliation Report [facility] VisitID: [id number] [place] [address] 56y, M Registration Date/Time: 05/17/2017 Weight: 90.7 kg Height/Length: 71 in. BMI: 27.9 ALLERGIES: Neosporin, Shellfish-derived Products The patient's Home Medications are listed below: NONE. The source(s) of the original Home Medication information: Not obtained. The following Medications were given to the patient in the Emergency Department: Morphine [IVP] IVP 4 mg, administered: 05/17/2017 4:34:00 AM Benadryl [IVP] IVP 25 mg, administered: 05/17/2017 4:31:00 AM Zofran [IVP] IVP 4 mg, administered: 05/17/2017 4:33:00 AM Lovenox [Subcutaneous] Subcutaneous 90 mg, administered: 05/17/2017 5:50:00 AM The following Medications were prescribed to the patient: None.
--- NOTE | 2017-05-19 06:38 | ED MED RECONCILIATION SUMMARY ---
Patient: CYN PARSONS Medication Reconciliation Report [facility] VisitID: [id number] [place] [address] 56y, M Registration Date/Time: 05/17/2017 Weight: 90.7 kg Height/Length: 71 in. BMI: 27.9 ALLERGIES: Neosporin, Shellfish-derived Products The patient's Home Medications are listed below: NONE. The source(s) of the original Home Medication information: Not obtained. The following Medications were given to the patient in the Emergency Department: Morphine [IVP] IVP 4 mg, administered: 05/17/2017 4:34:00 AM Benadryl [IVP] IVP 25 mg, administered: 05/17/2017 4:31:00 AM Zofran [IVP] IVP 4 mg, administered: 05/17/2017 4:33:00 AM Lovenox [Subcutaneous] Subcutaneous 90 mg, administered: 05/17/2017 5:50:00 AM The following Medications were prescribed to the patient: None.
--- NOTE | 2017-05-19 06:38 | ED MAR SUMMARY ---
..... Medication Administration Record [facility] [address] [place] [address] Patient: CYN PARSONS Visit ID: [id number] 56y, M Weight: 90.7 kg Height/Length: 71 in BMI: 27.9 ALLERGIES: Neosporin, Shellfish-derived Products Given 04:31 05/17/2017 Kamilla Borden R.N. Medication Administered: BENADRYL [IVP] (DIPHENHYDRAMINE HCL), Dose: 25 mg IVP over 2 minute(s), Site: #1 right AC. Medication Ordered: Benadryl IV 25 mg (NOW). Given 04:33 05/17/2017 Kamilla Borden R.N. Medication Administered: ZOFRAN [IVP] (ONDANSETRON HCL), Dose: 4 mg IVP over 2 minute(s), Site: #1 right AC. Medication Ordered: Zofran IV 4 mg (NOW). Given 04:34 05/17/2017 Kamilla Borden R.N. Medication Administered: MORPHINE [IVP], Dose: 4 mg IVP over 2 minute(s), Site: #1 right AC. Medication Ordered: Morphine IV 4 mg (HIGH ALERT MEDICATION, NOW). Given 05:50 05/17/2017 Kamilla Borden R.N. Medication Administered: LOVENOX [SUBCUTANEOUS] (ENOXAPARIN SODIUM), Dose: 90 mg Subcutaneous. Medication Ordered: Lovenox Subcut 1 mg/kg (HIGH ALERT MEDICATION, NOW).
== END 2017-05-18 10:00 | disposition home or self-care (01) | DRG 176 ==
LOC: ED SRH 02:55 → TRANS SRH 05:34 → ACUTE2 SRH 05:34
PROVIDERS: ADMIT Neuromusculoskeletal Medicine, Sports Medicine
DX: I26.99 Other pulmonary embolism without acute cor pulmonale (principal); I10 Essential (primary) hypertension; Z83.2 Family history of diseases of the blood and blood-forming organs and certain disorders involving the immune mechanism; K21.9 Gastro-esophageal reflux disease without esophagitis; M15.2 Bouchard's nodes (with arthropathy); F17.210 Nicotine dependence, cigarettes, uncomplicated
CPT/HCPCS: 90047; 90074; 90100; 90616; 91556; 94060; 95059